=== PATIENT | male | born 1985 | race Caucasian/White ===

== ENCOUNTER 2016-12-08 19:07 | Inpatient (IN) | payer OTHER ==
[~2016-12-08] VITALS: Ht 185.4 cm; Wt 83.9 kg
[2016-12-08 19:13] VITALS: BP 155/96
--- NOTE | 2016-12-08 19:25 | NUR ---
PT TAKEN TO BED 8
--- NOTE | 2016-12-08 19:30 | NUR ---
31 Y/O M W/C/O PIECE OF HOTDOG STUCKED IN THROAT X 45 MIN AGO. PT STATES WAS EATING A HOT DOG AND CHUCKED ON A BITED. UNABLE TO GET ALL THE PIECE OUT. HE STATES HE STILL FEELS SOMETHING STILL STUCK IN HIS THROAT. NO S/S OF RESP DISTRESS NOTED, LUNGS CLEAR, O2 SAT 96-97, PINK NO S/S OF CYANOSIS. NO MED HX. ER MADE AWARE.
--- NOTE | 2016-12-08 19:37 | NUR ---
Dr. Benavidez evaluating patient at bedside.
[2016-12-08] MEDS ORDERED: GLUCAGON 1 MG VIAL ONE ×2 (19:52→20:05)
[2016-12-08] MEDS ORDERED: NACL 0.9% 1,000 ML IV ONE (20:00)
[2016-12-08] MEDS ORDERED: GLUCAGON 1 MG VIAL IVP ONE (20:00)
[2016-12-08 20:40] LABS: ANION GAP 11.5 (8-16); CALCIUM 8.4 mg/dL (8.5-10.1); CARBON DIOXIDE 26.5 mmol/L (21-32); CREATININE 1.4 mg/dL (0.7-1.3)
[2016-12-08] MEDS ORDERED: METOCLOPRAMIDE 10 MG/2 ML INJ VIAL IVP ONE (20:40)
--- NOTE | 2016-12-08 22:37 | NUR ---
PT MOVED TO OF
[2016-12-08] MEDS ORDERED: ONDANSETRON 4 MG/2 ML VIAL IVP PRN (23:15)
[2016-12-08] MEDS ORDERED: MORPHINE SULFATE 2 MG/ML SYR IVP PRN (23:15)
[2016-12-08] MEDS ORDERED: LORazepam 2 MG/ML VIAL IVP PRN (23:15)
--- NOTE | 2016-12-08 23:17 | NUR ---
Patient will be admitted to care of DR GUNN. Admited to MS. Will go to room 106 A. Belongings list completed.
--- NOTE | 2016-12-08 23:17 | NUR ---
Patient will be admitted to care of DR. GUNN. Admited to MS. Will go to room 106 A Belongings list completed.
--- NOTE | 2016-12-08 23:32 | NUR ---
REPORT GIVEN TO SHANAE CUBA.
--- NOTE | 2016-12-08 23:50 | NUR ---
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
[2016-12-08] MEDS: NACL 0.9% 1,000 ML IV SCH (23:52)
[2016-12-09] VITALS: BP 133/84
--- NOTE | 2016-12-09 01:10 | NUR ---
PT UNABLE TO SLEEP DUE TO ANXIETY, MEDICATED PRN WITH ATIVAN, PT WILL WAIT TO SIGN THE EGD CONSENT IN THE MORNING WHEN HE SEE THE GI DOCTOR, ALL NEEDS ATTENDED.
--- NOTE | 2016-12-09 04:00 | NUR ---
PT SLEEPING, NO SIGNS OF DISTRESS, IVF INFUSING WELL, MAINTAINED ON NPO, MONITORED CLOSELY.
[2016-12-09 06:02] LABS: BASOPHILS # (AUTO) 0.2 K/uL (0.00-0.22); BASOPHILS % (AUTO) 2.2 % (0.0-2.0); EOSINOPHILS # (AUTO) 0.2 K/uL (0-0.4); EOSINOPHILS % (AUTO) 2.3 % (0.0-4.0); HEMATOCRIT 41.6 % (36-52); HEMOGLOBIN 14.4 g/dL (12.0-18.0); LYMPHOCYTES # (AUTO) 2.3 K/uL (2.0-11.5); LYMPHOCYTES % (AUTO) 21.6 % (20.5-51.1); MEAN CORPUSCULAR HEMOGLOBIN 30 pg (27-31); MEAN CORPUSCULAR HGB CONC 35 g/dL (33-37); MEAN CORPUSCULAR VOLUME 87 fL (80-94); MONOCYTES # (AUTO) 0.9 K/uL (0.8-1.0); MONOCYTES % (AUTO) 8.8 % (1.7-9.3); NEUTROPHILS # (AUTO) 7.1 K/uL (1.8-7.7); NEUTROPHILS % (AUTO) 65.1 % (42.2-75.2); PLATELET COUNT (AUTO) 189 K/uL (140-450); RED BLOOD CELL COUNT(AUTO) 4.77 MIL/uL (4.20-6.10); WHITE BLOOD COUNT (AUTO) 10.7 K/uL (4.8-10.8)
[2016-12-09 06:09] LABS: ANION GAP 11.1 (8-16); CALCIUM 7.9 mg/dL (8.5-10.1); CREATININE 1.1 mg/dL (0.7-1.3); POTASSIUM 4.1 mmol/L (3.5-5.1)
--- NOTE | 2016-12-09 06:23 | NUR ---
PATIENT HAS BEEN SCREENED AND CATEGORIZED HIGH NUTRITION RISK. PATIENT WILL BE SEEN WITHIN 1-2 DAYS OF ADMISSION. 12/09/16-12/10/[address]
--- NOTE | 2016-12-09 06:24 | NUR ---
DR LANTIGUA CALLED, UPDATED ON PT'S CONDITION, ORDERED TO OBTAIN CONSENT FOR EGD, WILL DO THE PROCEDURE AT 714, CONSENT SIGNED BY PT, AMBULATED TO BR AND VOIDED FREELY, STILL WITH DIFFICULTY SWALLOWING BUT DENIES ANY PAIN, MAINTAINED ON NPO, IVF INFUSING WELL.
--- NOTE | 2016-12-09 07:02 | NUR ---
PT AWAKE, TRANSPORTED TO GI LAB VIA BED FOR EGD IN STABLE CONDITION, WILL ENDORSE.
[2016-12-09] MEDS ORDERED: MIDAZOLAM 2 MG/2 ML VIAL ONE (07:06)
[2016-12-09] MEDS ORDERED: fentaNYL 0.05 MG/ML VIAL ONE (07:06)
[2016-12-09] MEDS ORDERED: diphenhydrAMINE 50 MG/ML VIAL ONE (07:06)
[2016-12-09 08:00] VITALS: BP 121/74
--- NOTE | 2016-12-09 08:00 | NUR ---
PATIENT RETURNED FROM EGD PROCEDURE. GASTRITIS, EOSIHOPHILIE ESOPHAGITIS, BIOPSY SENT PER MD. PATIENT ALERT AND ORIENTED. NO S/S OF RESPIRATORY DISTRESS. DENIES PAIN. IV SITE PATENT AND INTACT.
--- NOTE | 2016-12-09 08:49 | NUR ---
12/09/16 RD INITIAL ASSESSMENT COMPLETED PLEASE REFER TO NUTRITION ASSESSMENT UNDER CARE ACTIVITY FOR ESTIMATED NUTRITIONAL NEEDS. 1. WHEN MEDICALLY FEASIABLE, INITIATE PO DIET TOLERATED TO BEGIN WITH CLEAR LIQUID DIET AND ADVANCE TO REGULAR DIET 2. RD TO FOLLOW-UP 2-3 DAYS; HIGH RISK MABLE SOTO, HERBERT
[2016-12-09] MEDS: NACL 0.9% 1,000 ML IV SCH (08:52)
[2016-12-09] MEDS ORDERED: PANTOPRAZOLE 40 MG INJ VIAL IVP SCH (09:00)
[2016-12-09] MEDS ORDERED: fentaNYL 0.05 MG/ML VIAL IVP ONE (09:10)
[2016-12-09] MEDS ORDERED: MIDAZOLAM 2 MG/2 ML VIAL IVP ONE (09:10)
--- NOTE | 2016-12-09 10:30 | NUR ---
PATIENT TOLERATING ORAL FEEDING. DENIES NAUSEA. AMBULATORY TO BATHROOM.
--- NOTE | 2016-12-09 11:20 | NUR ---
CM NOTE INITIAL REVIEW FAXED TO [facility] / FAX# [phone], ATTN: ANGEL [phone]
--- NOTE | 2016-12-09 13:30 | NUR ---
PATIENT SEEN BY DR. GUNN AT BEDSIDE. OKAY TO D/C HOME. ALL NEEDS MET.
[2016-12-09] MEDS ORDERED: PANT40EC PO (13:56)
[2016-12-09] MEDS ORDERED: [UNRECOGNIZED DRUG - OTHER] TOP (14:00)
--- NOTE | 2016-12-09 14:29 | NUR ---
PATIENT DISCHARGE INSTRUCTIONS GIVEN WITH F/U APPOINTMENTS. DISCHARGE PRESCRIPTION TEACHING GIVEN, VERBALIZED UNDERSTANDING. ALERT AND ORIENTED. AMBULATORY. NO S/S OF ACUTE DISTRESS. DENIES PAIN. PATIENT TAKEN TO FRONT LOBBY WITH FAMILY.
== END 2016-12-09 14:30 | disposition home or self-care (01) | DRG 254 ==
LOC: MED 19:07 → MTU 23:14
PROVIDERS: ADMIT Hospitalist; ATTEND Hospitalist
PROC: 0DB58ZX Excision of Esophagus, Via Natural or Artificial Opening Endoscopic, Diagnostic (ICD-10-PCS; 2016-12-09)
PROC: 0DB68ZX Excision of Stomach, Via Natural or Artificial Opening Endoscopic, Diagnostic (ICD-10-PCS; 2016-12-09)
PROC: 0DC58ZZ Extirpation of Matter from Esophagus, Via Natural or Artificial Opening Endoscopic (ICD-10-PCS; principal; 2016-12-09 07:15)
DX: T18.128A Food in esophagus causing other injury, initial encounter (principal); F98.8 Other specified behavioral and emotional disorders with onset usually occurring in childhood and adolescence; K20.0 Eosinophilic esophagitis; K21.9 Gastro-esophageal reflux disease without esophagitis; Y93.89 Activity, other specified; Y92.89 Other specified places as the place of occurrence of the external cause; Y99.8 Other external cause status
CPT/HCPCS: 36415; 80048; 83735; 85025; 87081; 96361; 96374; 96375; 99285; C9113; J1200; J1610; J2060; J2250; J2765; J3010; J7030